=== PATIENT | female | born 1965 | race American Indian/Alaskan Native ===

== ENCOUNTER 2017-11-10 06:43 | Day surgery (SDC) | payer MEDICARE ==
[2017-11-10] MEDS ORDERED: NACL 0.9% 500 ML 500 ML IV SCH (07:00)
[2017-11-10 07:41] LABS: BUN/Creatinine Ratio 17; Blood Urea Nitrogen 17 mg/dL (7-17); Calcium 9.3 mg/dL (8.4-10.2); Hemolysis Index 3
[2017-11-10] MEDS ORDERED: HEPARIN/NS 5000 UNIT/500ML(CATH LAB) 1,000 ML IR ONE (08:31)
[2017-11-10] MEDS ORDERED: HEPARIN 10,000 UNITS/10 ML ONE (08:31)
[2017-11-10] MEDS ORDERED: NITROGLYCERIN SYRINGE 3 ML ONE (08:32)
[2017-11-10] MEDS ORDERED: CALAN ONE ×2 (08:32→09:08)
[2017-11-10] MEDS: VERSED ONE ×2 (09:21→09:24)
[2017-11-10] MEDS: SUBLIMAZE ONE ×3 (09:22→09:26)
[2017-11-10] MEDS: XYLOCAINE 2% INFILTRATI ONE ×2 (09:22→09:27)
--- NOTE | 2017-11-10 10:31 | Cardiac Catherization Report ---
CARDIAC CATHETERIZATION REPORT The patient is a 52-year-old -[place] female with a history of hypertension, diabetes mellitus, obesity and history of chronic smoking. He is having symptoms suggestive of angina. He had a stress EKG performed, which showed evidence of significant ischemic changes on the EKG. Hence scheduled for cardiac catheterization for further evaluation by delineating coronary anatomy. The patient is aware of the procedure, potential complications and alternatives of therapy. The patient was brought to the catheterization laboratory in a fasting condition. The right wrist area and forearm thoroughly cleansed with Betadine solution. The patient was evaluated for appropriateness for moderate sedation, which was felt appropriate. The patient was sedated with IV Versed and fentanyl. Subsequently, right radial artery puncture was made using 21-gauge arterial puncture needle. A 5-Vincentian slender sheath was introduced. A Vincentian TIG catheter was used to obtain the angiograms of the left coronary artery and right coronary artery in multiple views followed by angiograms of the left ventricle done in ESTEVEZ projection using hand injection. At the end of the procedure, catheter and sheath were removed. Good hemostasis was achieved with pressure bandage. No untoward complications were noted. The patient tolerated the procedure well. The patient was monitored throughout the procedure with EKG monitoring, pulse oximetry. The patient tolerated the moderate sedation with IV Versed and fentanyl well. The patient was sedated at 9:15 a.m. and was monitored up to 9:40 a.m. No untoward complications were noted from sedation. Following findings were noted. HEMODYNAMICS: 1. Opening aortic pressure 141/73. Left ventricular pressure 141/29. 2. Left ventriculogram done in ESTEVEZ projection showed normal sized left ventricle with normal contractility. Estimated ejection fraction of 55%. Mitral regurgitation could not be evaluated because of limited amount of dye injected. No gradient noted across the aortic valve. 3. Coronary arteries showed diffuse calcifications, particularly in the proximal part of the LAD. Left coronary artery, left main showed no focal lesions however, the caliber appears to be small, diffusely diseased vessel. LAD shows mild 30% ostial lesion and also 30% smooth eccentric lesion in the mid part. There is a medium sized diagonal branch, which is small caliber, which shows a segmental 80% lesion in the proximal one-third. However, this is a small caliber vessel. Rest of the LAD and its branches show only mild disease. Circumflex artery shows mild disease. RCA dominant vessel shows 40% smooth lesion. However, no obstructive lesions were noted. FINAL IMPRESSION: Normal sized left ventricle with diffuse calcifications along with significant lesion in a medium sized proximal diagonal branch, which is small caliber. Otherwise, left main appears to be diffusely diseased with no focal lesions. Similarly LAD and circumflex artery showed only mild disease. At this point, considering the above angiographic pictures, we would continue aggressive medical therapy and risk factor modification. The patient tolerated the procedure well. No untoward complications were noted. Findings were explained to the patient. JOB# [id number] JOHANN/SYEDA FREEMAN
[2017-11-10 11:36] VITALS: BP 125/81
--- NOTE | 2017-11-10 13:11 | Short Stay Summary ---
Short Stay Documentation Date of service: 11/10/17 - History H&P: obtained from office - Allergies and Medications Current Medications: Allergies doxycycline Allergy (Verified 11/10/17 07:00) Hives Home Medications Medication Instructions Recorded Confirmed Last Taken Type Aspirin EC [Aspirin Enteric Coated 81 mg PO QDAY 11/10/17 11/10/17 11/10/17 07: 25 History TAB] 325mg AtorvaSTATin [Lipitor] 40 mg PO DAILY 11/10/17 11/10/17 11/09/17 History 40mg Bupropion HCl [Wellbutrin XL] 300 mg PO QAM 11/10/17 11/10/17 11/09/17 History 300mg Cyclobenzaprine [Flexeril 10 MG 10 mg PO BID PRN 11/10/17 11/10/17 11/09/17 History TAB] 10mg Duloxetine HCl [DULoxetine] 60 mg PO DAILY 11/10/17 11/10/17 11/09/17 History 60mg Fluticasone [Flonase] 1 spray INNOSTRIL DAILY 11/10/17 11/10/17 11/09/17 History 1 spray Lisinopril/Hydrochlorothiazide 1 tab PO DAILY 11/10/17 11/10/17 11/09/17 History [Zestoretic 10-12.5 mg Tablet] 20-25mg Metformin HCl [Glucophage] 500 mg PO DAILY 11/10/17 11/10/17 11/09/17 History 500mg Metoprolol [Lopressor TAB] 25 mg PO DAILY 11/10/17 11/10/17 11/10/17 07:26 History 25mg Potassium Chloride [K-Dur] 20 meq PO QDAY 11/10/17 11/10/17 11/10/17 05:45 History 20meq clonazePAM [Klonopin] 1 mg PO TID 11/10/17 11/10/17 11/09/17 History 1mg Active Medications Sodium Chloride (Nacl 0.9% 500 Ml) 500 mls @ 50 mls/hr IV DIRECT RAGHU Stop: 11/10/17 16:59 Last Admin: 11/10/17 07:22 Dose: 50 mls/hr - Brief post op/procedure progress note Date of procedure: 11/10/17 Pre-op diagnosis: abnormal stress test Post-op diagnosis: same Procedure: LHC - see cath report Anesthesia: local Estimated blood loss: none Condition: stable - Disposition Condition at discharge: Stable Disposition: [id number] TO HOME OR SELFCARE - Discharge Diagnoses (1) Abnormal stress test Status: Chronic (2) CAD (coronary artery disease) Status: Chronic Short Stay Discharge Plan Activity: advance as tolerated Diet: low fat, low cholesterol, low salt Wound: open to air, keep clean and dry, per your surgeon's advice Follow up with: MARTINE HOFF MD [Primary Care Provider] - 7 Days Forms: CardCath PCI D/C Instructions
== END 2017-11-10 06:44 | disposition home or self-care (01) ==
LOC: CATHLABREC 06:43
PROVIDERS: ATTEND Internal Medicine
DX: I25.118 Atherosclerotic heart disease of native coronary artery with other forms of angina pectoris (principal); I10 Essential (primary) hypertension; E11.9 Type 2 diabetes mellitus without complications; E66.01 Morbid (severe) obesity due to excess calories; F17.200 Nicotine dependence, unspecified, uncomplicated; Z68.36 Body mass index [BMI] 36.0-36.9, adult; Z79.84 Long term (current) use of oral hypoglycemic drugs
CPT/HCPCS: 36415; 80048; 93005; 93010; 93458; 99156; 99157; C1887; C1894; J1644; J2250; J3010; J7040; Q9967